=== PATIENT | male | born 1995 | race Caucasian/White ===

== ENCOUNTER 2022-11-09 13:18 | Emergency (ER) | payer BC, SELFPAY ==
[2022-11-09 13:29] VITALS: BP 149/95; PULSE 108; RESP 16; TEMP 36.7; O2SAT 98
--- NOTE | 2022-11-09 13:29 | ED.GENADULT ---
HPI - General Adult General Chief complaint: Ear Stated complaint: Rt Ear Irritation Time Seen by Provider: 11/09/22 13:29 Source: patient Mode of arrival: ambulatory Limitations: no limitations History of Present Illness HPI narrative: 18-year-old male patient presents to the [facility] with complaints of decreased hearing to the right ear. Patient states he has had issues with ear wax buildup in his ears before the past. Patient states he has tried some flushing kits [id number] but states today it is got worse and is not able to hear out of the right ear at all. Denies any fevers, body aches or chills. Denies any sick symptoms, runny nose or sore throat. Related Data Home Medications Medication Instructions Recorded Confirmed No Home Medications 11/09/22 11/09/22 Allergies Allergy/AdvReac Type Severity Reaction Status Date / Time No Known Allergies Allergy Verified 11/09/22 13:23 Review of Systems Review of Systems: CONSTITUTIONAL: Denies fever, chills, or sweats. EYES: Denies visual changes, redness, or discharge. ENT: Denies rhinorrhea, congestion, sore throat, Positive right ear otalgia. CARDIOVASCULAR: Denies chest pain, palpitations, or edema. RESPIRATORY: Denies cough or dyspnea. GASTROINTESTINAL: Denies abdominal pain, nausea, vomiting, or diarrhea. GENITOURINARY: Denies dysuria or hematuria. SKIN: Denies rash or itching. MUSCULOSKELETAL: Denies back pain, joint pain, or myalgia. NEUROLOGIC: Denies headache, numbness, or weakness. PSYCHIATRIC: Denies anxiety or depression. FOR[facility]LY [facility] Past Medical History Medical History (Updated 11/09/22 @ 14:03 by CASEY Glynn) No significant past medical history Comments At the time of my signature I agree with nursing past medical history, surgical, social, and family history. There is no relevant family history pertinent to the presenting complaint. Exam Narrative: GENERAL: Well-appearing, well-nourished, and in no acute distress. HEAD: Normocephalic, atraumatic. EYES: PERRLA and EOMI. ENT: Nares clear, no rhinorrhea or epistaxis. Mucous membranes moist. unable to visualize the tympanic membrane on the right ear due to cerumen impaction. Left ear canal appears narrow but able to view the TM and no foreign bodies noted to the canal. NECK: Supple. No lymphadenopathy CHEST: Clear to auscultation. No respiratory distress. HEART: Regular rate and rhythm. No murmur heard. Normal peripheral pulses. ABDOMEN: Soft, nontender, nondistended, normal active bowel sounds. EXTREMITIES: Normal range of motion. No edema. SKIN: Warm, dry, no rash. NEURO: No focal deficits. Alert and oriented x3. Course Course Level of Care: Express Care Visit Vital Signs Vital signs: Vital Signs Temperature 36.7 C 11/09/22 13:29 Pulse Rate 108 H 11/09/22 13:29 Respiratory Rate 16 11/09/22 13:29 Blood Pressure 149/95 H 11/09/22 13:29 Pulse Oximetry 98 11/09/22 13:29 Oxygen Delivery Room Air 11/09/22 13:29 Temperature 36.7 C 11/09/22 13:29 Pulse Rate 108 H 11/09/22 13:29 Respiratory Rate 16 11/09/22 13:29 Blood Pressure 149/95 H 11/09/22 13:29 Pulse Oximetry 98 11/09/22 13:29 Oxygen Delivery Room Air 11/09/22 13:29 Vital signs reviewed The patient has been informed that they may have pre-hypertension or Hypertension based on a BP reading in the department. I recommend that the patient call the primary care provider listed on their discharge instructions or a physician of their choice this week to arrange follow up for further evaluation of possible pre-hypertension or Hypertension Procedures Ear Wax Removal Right Ear: Ear Wax Removal Date: 11/09/22 Ear Wax Removal Time: 14:03 Cerumenolytic Used: 5-10% Sodium Bicarb solution Results: Re-examined: some cerumen remains TM Examination: TM(s) intact, normal appearance Ear Canal Exam: atraumatic Patient Tolerated Procedur
== END 2022-11-09 14:07 | disposition home or self-care (01) ==
PROVIDERS: Emergency Provider Nurse Practitioner Family
DX: H61.21 Impacted cerumen, right ear (principal)
CPT/HCPCS: 69209; 99213; A9270; G0463